=== PATIENT | female | born 1945 | race Caucasian/White ===

== ENCOUNTER 2017-06-08 12:00 | Outpatient (CLI) | payer MEDICARE ==
--- NOTE | 2017-06-08 15:28 | MRI ---
MRI LUMBAR SPINE WITHOUT CONTRAST: HISTORY: Lumbar radiculopathy, constant back pain x 8 years. Pain and numbness down the left leg x 3 months. COMPARISON: None. TECHNIQUE: MRI of lumbar spine is performed without intravenous Gadolinium administration. Multisequential, mul tiplanar imaging is performed. FINDINGS: Appropriate T1 marrow signal intensity of the lumbar vertebrae. Lumbar spine vertebral body height i s maintained. Mild loss of vertebral body height likely due to a minimal compression deformity at L1 , chronic. Intrinsic T1 and T2 hyperintensity at the T12 level, compatible with a small hemangioma. Symmetric signal intensity of the psoas muscles. Appropriate signal intensity of visualized solid organs. Conus medullaris terminates at the superior aspect of L1. T12-L1: No significant central canal stenosis. Mild bilateral foraminal narrowing. L1-L2: Adequate disk hydration. No significant central canal stenosis. Neural foramen are patent b ilaterally. L2-L3: Adequate disk hydration. No significant central canal stenosis. Foramen are patent. L3-L4: Adequate disk hydration. Generalized disk bulge, ligamentum flavum thickening, and facet hyp ertrophy result in mild central canal stenosis. Neural foramina are patent bilaterally. L4-L5: Adequate disk hydration. No significant central canal stenosis. Neural foramina are patent bilaterally. L5-S1: Generalized disk bulge, ligamentum flavum thickening, and facet hypertrophy result in narrowi ng of both subarticular zones. Partial obscuration and near-complete obscuration of the respective r ight and left traversing S1 nerve roots. No significant stenosis of the thecal sac. Mild right and moderate left foraminal narrowing. IMPRESSION: 1. Degenerative change of the lumbar spine as above. There is degenerative disk disease at L3-L4 an d L4-L5 as defined above. 2. Degenerative disease at L5-S1 with narrowing of both subarticular zones left greater than right. Mass effect upon both traversing S1 nerve roots, left greater than right. POS: [facility]
== END 2017-06-08 12:01 | disposition home or self-care (01) ==
LOC: MRI 12:00 → TBSIIMAG 12:01
PROVIDERS: ATTEND Neurological Surgery
DX: M47.26 Other spondylosis with radiculopathy, lumbar region (principal); M51.16 Intervertebral disc disorders with radiculopathy, lumbar region; M51.37 Other intervertebral disc degeneration, lumbosacral region; M48.061 Spinal stenosis, lumbar region without neurogenic claudication
CPT/HCPCS: 72148

== ENCOUNTER 2017-06-27 08:04 | Day surgery (SDC) | payer MEDICARE ==
[2017-06-26 12:03] VITALS: BMI 51.6
--- NOTE | 2017-06-27 00:24 | HP ---
HISTORY OF PRESENT ILLNESS: Ms. Farmer is a 72-year-old woman who is actually known to us from pre vious evaluation of lumbar radiculopathy few years ago who returns now with a similar complaint that being a left L5 pattern of severe pain and burning sensation. Visits with a new MRI from [facility] that r eveals severe facet hypertrophy, particularly in the superior articulating facet of S1 causing spurri ng into the neural foramen of L5 on the left, which results in severe foraminal narrowing at that fabian e and level, which fits her pain well. She has been doing relatively okay and has a pain management physician who has been performing epidural steroid injections as well as what she describes to be a " pain mp injection," which sounds to be more of a superficial lidocaine injection along the pathw ay of the L5 nerve root and sciatic nerve. Unfortunately, this has stopped providing much relief and she has been suffering with a great deal of pain since that time. She hopes to move forward with so me other type of intervention and we discussed spinal cord stimulator. However, based on her symptom s and the pathology on MRI, I think she can certainly benefit from a more straightforward decompressi ve procedure. PAST MEDICAL HISTORY: Significant for hypertension. CURRENT MEDICATIONS: Methocarbamol, hydrocodone, and atenolol. ALLERGIES: No known drug allergies. PAST SURGICAL HISTORY: Unspecified. PHYSICAL EXAMINATION: The patient is alert and oriented x3. Gait is severely altered and antalgic. Positive left straight leg raise. Lower extremity motor exam is normal. ASSESSMENT: Lumbar radiculopathy. PLAN: Dr. Romo met with the patient, reviewed imaging, and advocated for a left L5 decompression. He explained to the patient the risks, benefits, and alternatives to the procedure. The patient expr essed understanding and would like to move forward with surgery as discussed. I do believe the patie nt is mentally competent and capable of making medical decisions for herself and we will move forward with surgery as planned. Man Steiner PA-C dictating for Dr. Romo.
[2017-06-27] MEDS ORDERED: Morphine 2 MG/ML SYRINGE ONE ×4 (08:38→11:55)
[2017-06-27] MEDS ORDERED: Bupivacaine HCl 0.5%/Epinephrine 1:200,000/PF 30 ml Vial ONE (08:51)
[2017-06-27] MEDS ORDERED: Levofloxacin 500 mg/D5W 100 ml Premix Bag ONE (08:57)
[2017-06-27] MEDS ORDERED: Clindamycin/D5W 900 mg/50 ml Premix Bag ONE (08:57)
[2017-06-27] MEDS ORDERED: Fentanyl 250 MCG/5 ML VIAL ONE (09:24)
[2017-06-27] MEDS ORDERED: Metoclopramide HCl 10 MG/2 ML VIAL ONE (10:59)
--- NOTE | 2017-06-27 12:13 | OP ---
DATE OF PROCEDURE: 06/27/2017 SURGEON: Cristhian Romo M.D. 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 INDICATION: Pain. DIAGNOSIS: Left L5 foraminal and lateral recess stenosis. PROCEDURES: Left L5 hemilaminectomy, medial facetectomy, foraminotomy. ANESTHESIA: General. TECHNIQUE: The patient was brought into the operating room and placed under general anesthesia. She was flipped from a supine to prone position on the operating room table. A linear incision was plan cas over the L5 segment. After prepping and draping and after an appropriate operative pause, the in cision was created. The soft tissues were swept left of midline. A self-retaining retractor was mat lianet in the wound for optimal exposure. After confirming the appropriate level, a C-arm fluoroscopy, a high-speed cutting drill bit was used to perform hemilaminectomy along the inferior aspect of L5. This encompassed the medial aspect of the facet joint. A foraminotomy was performed over the exiting L5 nerve root. Due to the patient's morbid obesity. A surgical modifier will be applied to represe nt increased surgical operative time. After decompressing the L5 segment as well as the exiting L5 n erve root, the wound was irrigated. Hemostasis was maintained throughout. The wound was then closed in anatomic layers and a pressure dressing was applied. There were no known procedural complication s.
[2017-06-27] MEDS ORDERED: Morphine 4 MG/ML Carpuject SLOW IVP PRN (12:39)
[2017-06-27] MEDS ORDERED: Ondansetron HCl/PF 4 MG/2 ML Vial IVP PRN (12:39)
[2017-06-27] MEDS ORDERED: Non-Formulary Medication 1 EACH PO PRN (12:39)
[2017-06-27] MEDS ORDERED: Promethazine HCl 25 MG/ML VIAL IM/IV PRN (12:39)
[2017-06-27] MEDS ORDERED: HYDROcodone/Acetaminophen 5/325 mg Tablet ONE (13:08)
--- NOTE | 2017-06-28 17:40 | EKG ---
Test Reason : PREOP Blood Pressure : / mmHG Vent. Rate : 066 BPM Atrial Rate : 066 BPM P-R Int : 176 ms QRS Dur : 088 ms QT Int : 428 ms P-R-T Axes : 051 013 040 degrees QTc Int : 448 ms Normal sinus rhythm Normal ECG No previous ECGs available Confirmed by DR. Leilani QUINONES ([id number]) on 06/28/2017 5:40:27 PM Referred By: CALLIE Confirmed By:DR. Leilani QUINONES
== END 2017-06-27 13:45 | disposition home or self-care (01) ==
LOC: SDC 08:04
PROVIDERS: ATTEND Neurological Surgery
PROC: 01NB0ZZ Release Lumbar Nerve, Open Approach (ICD-10-PCS; principal; 2017-06-27)
DX: M48.061 Spinal stenosis, lumbar region without neurogenic claudication (principal); M54.16 Radiculopathy, lumbar region; I10 Essential (primary) hypertension; M19.90 Unspecified osteoarthritis, unspecified site; E66.01 Morbid (severe) obesity due to excess calories; Z68.43 Body mass index [BMI] 50.0-59.9, adult; Z88.0 Allergy status to penicillin; Z79.899 Other long term (current) drug therapy; Z99.89 Dependence on other enabling machines and devices
CPT/HCPCS: 76001; 93005; 93010; 96374; J0131; J0670; J1956; J2270; J2765; J3010; J3490